=== PATIENT | male | born 1990 | race Caucasian/White ===

== ENCOUNTER 2017-08-29 01:45 | Emergency (ER) | payer MEDICAID, SELFPAY ==
[2017-08-29 01:46] VITALS: BP 129/89; PULSE 89; RESP 18; TEMP 36.8; O2SAT 100; BMI 30.5
--- NOTE | 2017-08-29 01:58 | ED.DCSUM_ITS ---
- ER Visit Summary Date of Service: 08/29/17 Chief Complaint: [] Sore throat History of Present Illness: The patient is a 27 M [] 2 weeks of sore throat gradual onset continuous. Mild in nature at this time. Mild nasal congestion. Mild soreness in the lymph nodes in his neck that is resolved. Using ibuprofen. Physical Examination: Vital signs reviewed General: Well-nourished well-developed Head: Normocephalic atraumatic Eyes: Pupils equal round and reactive to light extraocular movements intact ENT: TMs clear no hemotympanum no trauma throat exam normal. Tonsils normal without exudate or redness. Neck: Nontender full range of motion Cardiovascular: Regular rate rhythm no murmurs normal S1-S2 Respiratory: No distress clear to auscultation bilaterally chest nontender Abdomen: Soft nontender nondistended normal bowel sounds no masses Back: Nontender no CVA tenderness Extremities: Nontender active range of motion ?4 extremities no trauma Skin: Normal color no trauma Neuro alert oriented cranial nerves II through XII intact normal strength sensation reflexes Test Results: [] Emergency Department Course and Treatment: [] Reassured. I discussed doing a rapid strep. We decided not to do this since his exam is normal. This is likely just viral in nature. Use salt water gargles and ibuprofen. Treatment Plan: [] Disposition: [] Impression: [] Sore throat This note was generated with [employer] dictation software. It may contain incorrect words, spelling, and punctuation that were not noted in review of the chart prior to signing ED Disposition - Plan for ED Patient: Chief Complaint: Sore Throat Referrals: Jaydon Kimble MD [Primary Care Provider] -
--- NOTE | 2017-08-29 01:58 | ED.DEP ---
ED Disposition - Plan for ED Patient: Disposition: Home or Assisted Living Chief Complaint: Sore Throat Instructions: ED Pharyngitis Viral Prescriptions: Ibuprofen 800 mg PO TID #20 tab Referrals: Jaydon Kimble MD [Primary Care Provider] -
== END 2017-08-29 02:18 | disposition home or self-care (01) ==
LOC: ED 02:15
PROVIDERS: Emergency Provider Emergency Medicine; Family Provider Family Medicine; PCP Family Medicine
DX: J02.9 Acute pharyngitis, unspecified (principal); Z72.0 Tobacco use
CPT/HCPCS: 99282